=== PATIENT | female | born 1950 | race Caucasian/White ===

== ENCOUNTER → 2021-04-03 | Outpatient (CLI) | payer MEDICARE, OTHER ==
[~2021-04-03] MED LIST: AZELASTINE137 MCG/0. NS; BENICAR PO; BISACODYL SUPP10 MG RE; BUMEX2 MG PO; CALCIUM OYSTER500 MG PO; CARDIZEM CD120 MG PO; CIPROFLOXACIN500 M3 PO; CLARINEX5 MG PO; COLACE 100 MG100 MG PO; COUMADIN; COUMADIN7.5 MG PO; DILTIAZEM 24HR300 M1 PO; FISHOIL PO; FLECAINIDE ACET50 M1 PO; FLEXERIL PO; FUNGAL CREAM TOP; FUROSEMIDE 80 M80 M1 PO; GARCINIA CAMBO1 EACH PO; GARLIC OIL1 EACH PO; GLUCOSAMINE &1 EACH PO; GREEN TEA PO; HI-CAL500 MG PO; IMDUR PO; ISOSORBIDE DINI30 MG PO; K-DUR 20 MEQ T20 MEQ PO; LASIX 80 MG TAB80 MG PO; LISINOPRIL20 MG PO; LODINE XL400 MG PO; LOMOTIL TABLET1 EACH PO; MS CONTIN15 MG PO; MULTIVIT PO; NASACORT10.8 ML NS; OXYCODONE HCL5 M1 PO; POTASSIUM20 PO; PRILOSEC20 MG PO; ROXICODONE15 M1 PO; SINGULAIR 10 MG10 M1 PO; SYMBICORT160 MCG/4. INH; Tambocor PO; VITAMIN B PO; [UNRECOGNIZED DRUG - OTHER]; [UNRECOGNIZED DRUG - OTHER] PO; protandim
== END ==
LOC: M.WC 09:26
PROVIDERS: ATTEND Family Medicine
DX: I87.312 Chronic venous hypertension (idiopathic) with ulcer of left lower extremity (principal); L97.822 Non-pressure chronic ulcer of other part of left lower leg with fat layer exposed; I89.0 Lymphedema, not elsewhere classified; E66.01 Morbid (severe) obesity due to excess calories; G47.30 Sleep apnea, unspecified; H40.9 Unspecified glaucoma; J44.9 Chronic obstructive pulmonary disease, unspecified; Z68.44 Body mass index [BMI] 60.0-69.9, adult; Z87.891 Personal history of nicotine dependence; Z90.49 Acquired absence of other specified parts of digestive tract; Z79.01 Long term (current) use of anticoagulants

== ENCOUNTER → 2021-04-10 | Outpatient (CLI) | payer MEDICARE, OTHER | LOC: M.WC 09:11 | PROVIDERS: ATTEND Family Medicine | DX: I87.312 Chronic venous hypertension (idiopathic) with ulcer of left lower extremity (principal); L97.822 Non-pressure chronic ulcer of other part of left lower leg with fat layer exposed; I89.0 Lymphedema, not elsewhere classified; H40.9 Unspecified glaucoma; J44.9 Chronic obstructive pulmonary disease, unspecified; E66.01 Morbid (severe) obesity due to excess calories; G47.30 Sleep apnea, unspecified; Z68.44 Body mass index [BMI] 60.0-69.9, adult; Z87.891 Personal history of nicotine dependence; Z79.01 Long term (current) use of anticoagulants; Z79.899 Other long term (current) drug therapy ==

== ENCOUNTER → 2021-04-17 | Outpatient (CLI) | payer MEDICARE, OTHER | LOC: M.WC 08:40 | PROVIDERS: ATTEND Family Medicine | DX: I87.312 Chronic venous hypertension (idiopathic) with ulcer of left lower extremity (principal); L97.822 Non-pressure chronic ulcer of other part of left lower leg with fat layer exposed; I89.0 Lymphedema, not elsewhere classified; H40.9 Unspecified glaucoma; J44.9 Chronic obstructive pulmonary disease, unspecified; E66.01 Morbid (severe) obesity due to excess calories; G47.30 Sleep apnea, unspecified; Z68.44 Body mass index [BMI] 60.0-69.9, adult; Z87.891 Personal history of nicotine dependence; Z79.01 Long term (current) use of anticoagulants ==